=== PATIENT | female | born 1995 | race Caucasian/White ===

== ENCOUNTER 2016-06-27 07:10 | Inpatient (IN) ==
[2016-06-27] MEDS ORDERED: SODIUM CHLORIDE 0.9% 1,000 ML IV STA ×2 (07:47→09:42)
[2016-06-27] MEDS ORDERED: ONDANSETRON 4 MG/2 ML VIAL IV STA ×2 (07:47→08:31)
[2016-06-27] MEDS ORDERED: INSULIN REGULAR 100 UNIT/ML SUBCUT STA (07:47)
[2016-06-27] MEDS ORDERED: ONDANSETRON 4 MG/2 ML VIAL ONE ×2 (07:54→08:32)
[2016-06-27] MEDS ORDERED: INSULIN REGULAR 100 UNIT/ML ONE (07:56)
[2016-06-27 08:28] LABS: Basophils # 0.1 10*3/uL (0.0-0.2); Basophils % 0.2 % (0.0-0.8); Hematocrit 36.9 VOL% (35.7-47.0); Hemoglobin 12.5 GM/DL (12.0-16.0); Immature Granulocytes % 0.6 %; Immature Granulocytes Absolute 0.12 #; Lymphocytes # 0.7 10*3/uL (1.4-4.0); Lymphocytes % 3.2 % (21.3-54.2); Mean Corpuscular HGB Conc 33.9 GM/DL (32-36); Mean Corpuscular Hemoglobin 29 PG (27-34); Mean Corpuscular Volume 86.8 FL (87-102); Mean Platelet Volume 11.9 FL (9.6-12.0); Monocytes # 0.9 10*3/uL (0.11-0.8); Monocytes % 4.5 % (1.7-12.7); Neutrophils # 18.5 10*3/uL (1.4-7.4); Neutrophils % 91.5 % (38.7-73.9); Platelet Count 351 T/CUMM (130-400); Red Blood Count 4.25 MC/CUMM (3.8-5.5); Red Cell Distribution Width 11.9 % (9.3-17.3); White Blood Count 20.3 T/CUMM (4-12)
[2016-06-27 08:55] LABS: Hypochromasia Slight
[2016-06-27 09:02] LABS: Albumin 4.3 G/DL (3.4-5.0); Bilirubin,Total 1.1 MG/DL (0.2-1.0); Calcium 9.7 MG/DL (8.5-10.1); Osmolality,Calculated 292.8 MOS/KG (273-304); Potassium 5.2 MMOL/L (3.5-5.1); Total Protein 7.5 G/DL (6.4-8.3)
--- NOTE | 2016-06-27 11:49 | Emergency Department Note ---
Patience Davila Brittany, am scribing for, and in the presence of, Vincent Cotton Jr., MD 07:51. Yury Davila Marvin Jr., MD, personally performed the services described in this documentation, ascribed by Roro Morin in my presence, and it is both accurate and complete 913 . Arrival - Arrival Chief Complaint: Nausea/Vomiting/Diarrhea Stated Complaint: vomiting had tooth pulled on sob ED Nursing Triage Note: c/o nausea/ vomiting since , states had her wisdom tooth removed on thr by ., states has not called at this time, states she is unable to keep any of her medications down., Mode of Arrival: Ambulatory Source: Patient - History of Present Illness HPI Narrative: This is a 20 y/o white female, who presents to the ED with c/o nausea and vomiting which started yesterday evening. Her mom reports she had her wisdom tooth removed on 2 days ago. She states since haing the wisdom tooth removed she has been nauseated and vomiting. Her mom states pt was given Percocet but has been unable to keep them down. She states the last Perocet was given at 2300 last night. Pt reports at 0530 this morning she started to get SOB and experience chest pains. She also reports her arms and legs "feeling funny." Pt has no other complaints/pain in the ED at this time. Pt has a PMHx of IDDM. Pt has had wisdom teeth removed. Pt denies a family medical Hx. Pt denies a social Hx. Onset (ago): day(s) (Started yesterday evening) Consistency: constant Severity: moderate Date of Last Menstrual Period: may 27 Allergies/Adverse Reactions: Allergies Allergy/AdvReac Type Severity Reaction Status Date / Time No Known Allergies Allergy Verified 06/27/16 07:17 Home Medications: Home Medications Medication Instructions Recorded Confirmed Type Insulin Aspart [NovoLOG Flexpen] See Protocol SUBCUT DAILY 10/16/14 06/27/16 History Insulin Glargine [Lantus] 27 unit SUBCUT BEDTIME 10/16/14 06/27/16 History Review of System - Review of System 12 point system: reviewed and no additional remarkable complaints except as stated - Review of System Head/Ears/Nose/Throat: Present: other (Mouth pain secondary to wisdom tooth removed) Cardiovascular: Present: chest pain, other (Dyspnea). Absent: dyspnea on exertion Gastrointestinal: Present: nausea, vomiting Medical,Surgical,& Family Hx - Medical History Endocrine: History of: Diabetes Mellitus (IDDM) - Social History Smoking Status: Never smoker Frequency of Alcohol Use: None Type of Drug Use: None Exam Physical Examination: General: Well-developed well-nourished, no apparent distress. Head: Normocephalic, atraumatic. Eyes: PERRLA, EOMI. Nose: No obvious acute deformities or discharge. Mouth: No obvious acute injury. Mucous membranes appear dry Neck: Full range of motion without obvious pain. No midline tender to palpation. Lymphatic: no significant lymphadenopathy noted. Lungs: Clear to auscultation bilaterally, normal and equal air movement bilaterally, no obvious rales or wheezing. Heart: tachycardic Abdomen: Soft nontender, nondistended, normal active bowel sounds. Skin: No obivous acute lesions noted Musculoskeletal: No gross deformities. Neurological: No focal findings, cranial nerves II through XII grossly normal. Psychiatric: Appropriate mood.. : Deferred Vital Signs: Vital Signs Temperature 98.9 F 06/27/16 07:30 Pulse Rate 130 H 06/27/16 07:30 Respiratory Rate 20 06/27/16 07:30 Blood Pressure 120/70 06/27/16 07:30 O2 Sat by Pulse Oximetry 99 06/27/16 07:13 Course Course Narrative: Differential diagnosis, dehydration, adverse drug reaction to Percocet, poorly controlled diabetes - Reevaluation(s) Reevaluation #1: Patient still nauseated Time: 08:31 Reevaluation #2: Patient still little nauseated, lab work indicates this patient is in DKA. Will continue fluids and admit her to the hospital. She still tachycardic Time: 09:42 Reevaluation #3: Patient is improving, heart rate now 103. She has been able to tolerate a little bit of water. Obviously this is a DKA patient will be admitted to the hospital. I contacted the hospitalist and they will come down to decide if she needs to go to the ICU versus regular floor bed. She is much better than when she first got here. Time: 11:46 Results - Labs CBC & BMP: 06/27/16 07:38 06/27/16 07:38 Lab Results: I have reviewed the patients labs Labs: Laboratory Tests 06/27/16 06/27/16 06/27/16 07:38 07:38 07:43 WBC 20.3 H RBC 4.25 Hgb 12.5 Hct 36.9 MCV 86.8 L MCH 29 MCHC 33.9 RDW 11.9 Plt Count 351 MPV 11.9 Neut % (Auto) 91.5 H Lymph % (Auto) 3.2 L [place] % (Auto) 4.5 Eos % (Auto) 0.0 Baso % (Auto) 0.2 Neut # (Auto) 18.5 H Lymph # (Auto) 0.7 L [place] # (Auto) 0.9 H Eos # (Auto) 0.0 Baso # (Auto) 0.1 Immature Gran % 0.6 Nucleated RBC % 0.0 Immature Gran # 0.12 Nucleated RBCs # 0.00 Hypochromasia Slight Sodium 137 Potassium 5.2 H Chloride 98 Carbon Dioxide 14 L Anion Gap 30.2 H BUN 16 Creatinine 1.30 H GFR Calculation 58 BUN/Creatinine Ratio 12.00 Glucose 446 H POC Glucose 434 H Calculated Osmolality 292.8 Calcium 9.7 Total Bilirubin 1.10 H AST 15 ALT 13 Alkaline Phosphatase 101 Total Protein 7.5 Albumin 4.3 Globulin 3.2 Albumin/Globulin Ratio 1.3 06/27/16 09:01 WBC RBC Hgb Hct MCV MCH MCHC RDW Plt Count MPV Neut % (Auto) Lymph % (Auto) [place] % (Auto) Eos % (Auto) Baso % (Auto) Neut # (Auto) Lymph # (Auto) [place] # (Auto) Eos # (Auto) Baso # (Auto) Immature Gran % Nucleated RBC % Immature Gran # Nucleated RBCs # Hypochromasia Sodium Potassium Chloride Carbon Dioxide Anion Gap BUN Creatinine GFR Calculation BUN/Creatinine Ratio Glucose POC Glucose 404 H Calculated Osmolality Calcium Total Bilirubin AST ALT Alkaline Phosphatase Total Protein Albumin Globulin Albumin/Globulin Ratio Critical Care Time Critical Care Time: Yes Total Critical Care Time: 32 (DKA, acidosis, vomiting, dehydration) Disposition Clinical Impression: Diabetic ketoacidosis, Moderate dehydration, Metabolic acidosis, Renal insufficiency, Poorly controlled diabetes mellitus, History of recent dental procedure Case discussed with: patient, patient's family Disposition: Still a Patient Condition: Stable Time of Disposition: 11:48
[2016-06-27 12:29] LABS: Apearance,Urine CLEAR (Clear); Bilirubin,Urine Negative (Negative); Blood, Urine Negative (Negative); Glucose,Urine (UA) >=500 mg/dL (Negative); Ketones,Urine 80 mg/dL (Negative); Nitrite,Urine Negative (Negative); Protein,Urine Negative; RBC,Urine <1 /HPF (0-4); Squamous Epithelial Cell,Urine Occasional /HPF (0-10); Urine Color Straw (Yellow); Urine Specific Gravity 1.017 (1.001-1.035); Urine Urobilinogen < 2.0 EU/DL (0.2-1.0); WBC,Urine 2 /HPF (0-6)
[2016-06-27 12:37] LABS: ABG Base Excess -10.1 MMOL/L (-2.5-2.5); ABG HCO3 16.5 MMOL/L (20-26); ABG Oxygen Saturation 98.8 % (95-100); ABG PCO2 27.9 MM HG (35-48); ABG PH 7.329 (7.35-7.45); ABG TCO2 13.3 MMOL/L (23-27); Allen Test Positive; Pt O2 Delivery Device Room Air
[2016-06-27] MEDS ORDERED: SODIUM CHLORIDE 0.9% 100 ML IV ONE (12:46)
[2016-06-27] MEDS ORDERED: PIPERACILLIN/TAZOBACTAM 3,375 MG VIAL IV ONE (12:46)
[2016-06-27] MEDS ORDERED: SODIUM CHLORIDE 0.9% 1,000 ML IV ONE (12:48)
[2016-06-27] MEDS ORDERED: SODIUM BICARB INJ 100 MEQ in STERILE WATER INJ 400 ML IV PRN (12:48)
[2016-06-27] MEDS ORDERED: POTASSIUM CHLORIDE RIDER 10 MEQ in PREMIX 1 EACH IV PRN (12:48)
[2016-06-27] MEDS ORDERED: INSULIN REGULAR DRIP 100 ML IV SCH (12:48)
[2016-06-27] MEDS ORDERED: SODIUM CHLORIDE 0.9% IV PRN (12:48)
[2016-06-27] MEDS ORDERED: MAGNESIUM SULF RIDER 2 GM in PREMIX 1 EACH IV PRN (12:48)
[2016-06-27] MEDS ORDERED: SODIUM PHOSPHATE IV PRN (12:48)
[2016-06-27] MEDS ORDERED: DEXTROSE 50% 25 GM/50 ML VIAL IV PRN ×2 (12:48)
[2016-06-27] MEDS ORDERED: MAGNESIUM SULF RIDER 4 GM in PREMIX 1 EACH IV PRN (12:48)
--- NOTE | 2016-06-27 12:51 | Hospitalist History & Physical ---
<Darwin Rosales - Last Filed: 06/27/16 12:41> Assessment and Plan - Time spent with patient Time spent with patient: Greater than 30 minutes (1) Insulin dependent diabetes mellitus Status: Acute Assessment and plan: Diagnosed at age 4. Well controlled on NovoLog and Lantus. Recent dental procedure. Has been holding her insulin doses because of "reduced appetite". Will monitor glucose and treat accordingly. Current Visit: Yes (2) History of recent dental procedure Status: Acute Assessment and plan: [place] teeth extraction on 06/25/2016. Amoxicillin and Percocet given. Current Visit: Yes (3) Metabolic acidosis Status: Acute Assessment and plan: PH 7.3 bicarb 16.5 PCO2 27.9. Current Visit: Yes (4) Hyperosmolar syndrome Status: Acute Assessment and plan: Blood glucose 446 on arrival. POC glucose 270 at time of the exam. Patient given 12 units of insulin. Patient already has received 2 L of normal saline. Will give 4 more liters in the unit. Current Visit: Yes History of Present Illness Chief complaint: Nausea/vomiting History of present illness: Ms. Rueda is a 20 year old female with a history significant for insulin- dependent diabetes mellitus for 16 years who presents to the emergency room with complaints of nausea vomiting since yesterday evening. Patient's mother and father are at bedside, and mother reports that the patient had her wisdom teeth pulled on . The patient has been on amoxicillin and Percocet. The patient has been vomiting intermittently since around 8 PM last night and unable to eat. She describes this emesis as yellow/brown in color. On exam, patient appears mildly distressed but denies abdominal pain, diarrhea. White count is 20.3 ABGs: PH 7.3, PCO2 27.9, PO2 117.0, HCO3 16.5. Serum glucose 446 on admission. Patient has been given 12 units of insulin and 2 L of normal saline. POC glucose at the time of exam is 270. Patient will be admitted to the hospital medicine team for further management. It appears the patient may be in a hyperosmolar state rather than acute DKA. We will admit her to the ICU and give 4 more liters of IV fluids and treat the glucose accordingly. Home Medications Medication Instructions Recorded Confirmed Type Insulin Aspart [NovoLOG Flexpen] See Protocol SUBCUT DAILY 10/16/14 06/27/16 History Insulin Glargine [Lantus] 27 unit SUBCUT BEDTIME 10/16/14 06/27/16 History Allergies Allergy/AdvReac Type Severity Reaction Status Date / Time No Known Allergies Allergy Verified 06/27/16 07:17 Medical,Surgical,& Family Hx - Medical History Endocrine: History of: Diabetes Mellitus (IDDM) - Surgical History Additional Surgical History: [place] teeth extraction on 06/25/2016 - Family History Family History: Reports;: Family Diabetes, Family Hypertension - Social History Smoking Status: Never smoker Frequency of Alcohol Use: None Type of Drug Use: None Marital Status: Single Lives With:: College roommate Functional capacity: independent ambulation - Constitutional Constitutional: Present: fatigue, weakness. Absent: chills, fever(s) - EENT Eyes: Absent: blurry vision, loss of vision Ears: Absent: decreased hearing, ear pain Nose, mouth and throat: Absent: headache(s), neck mass, neck pain - Cardiovascular Cardiovascular: Absent: chest pain with activity, diaphoresis, dyspnea, edema - Respiratory Respiratory: Absent: cough, dyspnea - Gastrointestinal Gastrointestinal: Present: nausea, vomiting. Absent: constipation, cramping, diarrhea - Genitourinary Genitourinary: Absent: difficulty urinating, dysuria, flank pain - Musculoskeletal Musculoskeletal: Absent: arthralgias, back pain - Neurological Neurological: Absent: abnormal gait, abnormal speech - Psychiatric Psychiatric: Absent: anxiety, auditory hallucinations - Endocrine Endocrine: Absent: cold intolerance, heat intolerance - Hematologic/Lymphatic Hematologic/Lymphatic: Absent: easy bleeding, easy bruising, lymphadenopathy Exam - Constitutional Vitals: Period Temp Pulse Resp BP Sys/Chapman Pulse Ox Last 24 Hr 98.9 F-98.9 F 130-130 20-20 120-120/70-70 99 Exam: General appearance: normal weight, mild distress - Head Head exam: Present: normocephalic, atraumatic - Eye Eye exam: Present: EOMI. Absent: conjunctival injection, nystagmus Pupils: Present: SRAVAN, normal accommodation - ENT ENT exam: Present: normal exam, normal external ear exam - Neck Neck exam: Present: normal inspection. Absent: lymphadenopathy, tenderness, thyromegaly - Respiratory Respiratory exam: Present: clear to auscultation bilaterally. Absent: rales, rhonchi, wheezes - Cardiovascular Cardiovascular exam: Present: tachycardia. Absent: carotid bruit, gallop, rubs - GI/Abdominal GI/Abdominal exam: Present: normal bowel sounds. Absent: ascites, distended, mass - Extremities Exam Extremities exam: Present: normal inspection, normal capillary refill. Absent: edema - Back Exam Back exam: Absent: CVA tenderness (L), CVA tenderness (R) - Neurological Exam Neurological exam: Present: alert, oriented X3 - Psychiatric Psychiatric exam: Present: normal affect, normal mood - Skin Skin exam: Present: normal color, warm, dry Results - Labs CBC & BMP: 06/27/16 07:38 06/27/16 07:38 Lab Results: I have reviewed the past 24 hour labs - Diagnostic Findings Procedure: Chest x-ray: image reviewed by me, report reviewed by me <Laureen Mancera - Last Filed: 06/27/16 14:24> Assessment and Plan (1) Diabetic ketoacidosis Status: Acute Assessment and plan: anion gap of 25, 2 liters of IVF in ER, 4 more liters of fluid and insulin drip , check abg, mg and phos, look for infectious source Current Visit: Yes (2) Leukocytosis Status: Acute Assessment and plan: may be stress response, recent wisdom teeth pulled, cont zosyn IV, ua negative , cxr negative, blood cx pending Current Visit: Yes (3) Moderate dehydration Status: Acute Assessment and plan: due to DKA Current Visit: Yes (4) Nausea and vomiting Status: Acute Assessment and plan: due to percocet or dka Current Visit: Yes History of Present Illness History of present illness: Ms. Rueda is a 20 year old female seen and examined. Hyperosmolar due to hold some of her insulin for surgery and post surgery, needs infectious workup. Dont smell ketones. Results - Labs CBC & BMP: 06/27/16 07:38 06/27/16 07:38 - Diagnostic Findings Procedure: Chest x-ray: report reviewed by me (nothing acute )
--- NOTE | 2016-06-27 12:53 | XRay Report ---
History: Nausea and vomiting. Shortness of breath. Infection Date: 06/27/2016 Study: Chest x-ray AP portable Comparison exam: No previous chest x-ray available The cardiomediastinal silhouette and pulmonary vasculature are unremarkable. The lungs and pleural spaces are clear. The osseous structures are unremarkable. Impression: No acute cardiopulmonary process PROCEDURE INTERPRETED AT [facility] DEPARTMENT OF RADIOLOGY Final Report Signed by: Dr. Nandini Shah
[2016-06-27] MEDS: PIPERACILLIN/TAZOBACTAM 3,375 MG in SODIUM CHLORIDE 0.9% 100 ML IV SCH ×2 (13:00→20:04)
[2016-06-27 14:32] LABS: Basophils % 0.1 % (0.0-0.8); Hematocrit 31.8 VOL% (35.7-47.0); Hemoglobin 10.6 GM/DL (12.0-16.0); Immature Granulocytes % 0.5 %; Immature Granulocytes Absolute 0.09 #; Lymphocytes # 1.2 10*3/uL (1.4-4.0); Lymphocytes % 6.5 % (21.3-54.2); Mean Corpuscular HGB Conc 33.3 GM/DL (32-36); Mean Corpuscular Hemoglobin 30 PG (27-34); Mean Corpuscular Volume 89.6 FL (87-102); Mean Platelet Volume 10.8 FL (9.6-12.0); Monocytes # 1.3 10*3/uL (0.11-0.8); Neutrophils % 85.9 % (38.7-73.9); Platelet Count 239 T/CUMM (130-400); Red Blood Count 3.55 MC/CUMM (3.8-5.5); Red Cell Distribution Width 11.9 % (9.3-17.3); White Blood Count 18.6 T/CUMM (4-12)
[2016-06-27 15:00] LABS: Calcium 8.1 MG/DL (8.5-10.1); Magnesium 1.8 MG/DL (1.8-2.4); Phosphorous 3.6 MG/DL (2.5-4.9); Potassium 4.5 MMOL/L (3.5-5.1)
[2016-06-27] MEDS: SODIUM CHLORIDE 0.9% 1,000 ML IV SCH ×2 (15:26→17:51)
[2016-06-27 16:58] LABS: Apearance,Urine CLEAR (Clear); Bilirubin,Urine Negative (Negative); Blood, Urine Small mg/dL (Negative); Glucose,Urine (UA) >=500 mg/dL (Negative); Ketones,Urine 80 mg/dL (Negative); Mucus,Urine Occasional /LPF (Occasional); Nitrite,Urine Negative (Negative); Protein,Urine Negative; RBC,Urine 1 /HPF (0-4); Squamous Epithelial Cell,Urine Occasional /HPF (0-10); Urine Color Yellow (Yellow); Urine Specific Gravity 1.018 (1.001-1.035); Urine Urobilinogen < 2.0 EU/DL (0.2-1.0); WBC,Urine 3 /HPF (0-6)
[2016-06-27 17:03] LABS: Calcium 7.8 MG/DL (8.5-10.1); Osmolality,Calculated 288.8 MOS/KG (273-304)
[2016-06-27] MEDS ORDERED: SODIUM CHLORIDE 0.9% 1,000 ML IV SCH (17:19)
[2016-06-27] MEDS: DEXTROSE 5% NACL 0.9% 1,000 ML IV SCH (19:16)
[2016-06-27 21:52] LABS: Calcium 7.9 MG/DL (8.5-10.1); Osmolality,Calculated 287.7 MOS/KG (273-304); Potassium 3.3 MMOL/L (3.5-5.1)
[2016-06-27] MEDS: DEXT 5% NACL 0.45% KCL 20 MEQ 20 MEQ/1,000 ML BAG IV SCH (22:46)
[2016-06-28 02:36] LABS: Calcium 7.6 MG/DL (8.5-10.1); Osmolality,Calculated 286.6 MOS/KG (273-304); Potassium 3.6 MMOL/L (3.5-5.1)
[2016-06-28] MEDS: DEXT 5% NACL 0.45% KCL 20 MEQ 20 MEQ/1,000 ML BAG IV SCH (03:02)
[2016-06-28] MEDS: PIPERACILLIN/TAZOBACTAM 3,375 MG in SODIUM CHLORIDE 0.9% 100 ML IV SCH ×2 (04:29→11:52)
[2016-06-28] MEDS: ACETAMINOPHEN 325 MG TABLET PO PRN ×2 (04:29→09:15)
[2016-06-28 04:42] LABS: Basophils % 0.2 % (0.0-0.8); Eosinophils # 0.1 10*3/uL (0.0-0.87); Eosinophils % 0.5 % (0.00-10.9); Hematocrit 27.2 VOL% (35.7-47.0); Immature Granulocytes % 0.2 %; Immature Granulocytes Absolute 0.02 #; Lymphocytes # 1.8 10*3/uL (1.4-4.0); Lymphocytes % 18.4 % (21.3-54.2); Mean Corpuscular HGB Conc 33.1 GM/DL (32-36); Mean Corpuscular Hemoglobin 29 PG (27-34); Mean Corpuscular Volume 88.3 FL (87-102); Monocytes % 10.5 % (1.7-12.7); Neutrophils % 70.2 % (38.7-73.9); Platelet Count 184 T/CUMM (130-400); Red Blood Count 3.08 MC/CUMM (3.8-5.5); Red Cell Distribution Width 12.3 % (9.3-17.3); White Blood Count 9.9 T/CUMM (4-12)
[2016-06-28 05:10] LABS: Calcium 7.4 MG/DL (8.5-10.1); Osmolality,Calculated 285.7 MOS/KG (273-304); Potassium 3.8 MMOL/L (3.5-5.1)
[2016-06-28 05:11] LABS: Magnesium 1.9 MG/DL (1.8-2.4); Phosphorous 2.1 MG/DL (2.5-4.9)
[2016-06-28] MEDS ORDERED: SODIUM CHLORIDE 0.45% 1,000 ML IV SCH (05:19)
[2016-06-28] MEDS: DEXTROSE 5% NACL 0.9% 1,000 ML IV SCH (06:38)
[2016-06-28] MEDS ORDERED: DEXTROSE 5% NACL 0.45% 1,000 ML IV SCH (07:00)
[2016-06-28 08:33] LABS: Calcium 7.5 MG/DL (8.5-10.1); Osmolality,Calculated 287.6 MOS/KG (273-304); Potassium 3.7 MMOL/L (3.5-5.1)
[2016-06-28] MEDS ORDERED: INSULIN GLARGINE 100 UNIT/ML SUBCUT SCH (09:00)
[2016-06-28] MEDS: INSULIN GLARGINE 100 UNIT/ML SUBCUT SCH (09:11)
[2016-06-28] MEDS: SODIUM CHLORIDE 0.45% 1,000 ML IV SCH ×2 (09:11→16:57)
[2016-06-28] MEDS: ONDANSETRON 4 MG/2 ML VIAL IV PRN ×2 (09:30→16:58)
[2016-06-28] MEDS ORDERED: POTASSIUM PHOSPHATE 30 MMOL in SODIUM CHLORIDE 0.9% 250 ML IV ONE (09:30)
[2016-06-28] MEDS: INSULIN LISPRO 100 UNIT/ML SUBCUT SCH ×6 (11:52→20:41)
--- NOTE | 2016-06-28 13:32 | Hospitalist Progress Note ---
Assessment and Plan (1) Diabetic ketoacidosis Status: Acute Assessment and plan: inrease Lantus to 50 units subcu daily, high dose insulin sliding scale Current Visit: Yes (2) Leukocytosis Status: Acute Assessment and plan: Most likely due to stress response. Chest x-ray and UA are negative. Blood cultures 2 are negative no growth, will stop Zosyn today and restart her amoxicillin given to her by Dentist Current Visit: Yes (3) Moderate dehydration Status: Acute Assessment and plan: resolved Current Visit: Yes (4) Nausea and vomiting Status: Acute Assessment and plan: resolved, restarted diabetic diet Current Visit: Yes (5) Hypophosphatemia Status: Acute Assessment and plan: Kphos replace Current Visit: Yes Hospitalist: Subjective Interval history: She is still a little swollen. The pain is better today and she really wants to eat. Her gap is closed and we are converting her over to Lantus. She was taking 27 daily at home but her blood sugars are not well controlled. We will increase that to 50 units subcu daily. We will start a high-dose sliding scale and move her out of the ICU. Her dehydration has resolved. Exam - Constitutional Vitals: Period Temp Pulse Resp BP Sys/Chapman Pulse Ox Last 24 Hr 97.8 F-99.3 F 70-117 14-25 89-119/44-68 96-100 Exam: Heart Rate-[RRR] Lungs-[CTAB] GI-[+bs soft, NT] Ext-[trace edema] Neuro [Motor 5/5], [alert and oriented times 3] psych [normal mood and affect] General [no acute distress] Face cheeks are a little swollen due to recent surgical extraction Results - Labs CBC & BMP: 06/28/16 03:47 06/28/16 07:59 Lab Results: I have reviewed the past 24 hour labs
[2016-06-28] MEDS ORDERED: PROMETHAZINE 25 MG/1 ML VIAL ONE (15:07)
[2016-06-28] MEDS ORDERED: PROMETHAZINE 25 MG/1 ML VIAL IM PRN (15:13)
[2016-06-28] MEDS ORDERED: ONDANSETRON 4 MG/2 ML VIAL IV PRN (18:31)
[2016-06-28] MEDS: AMOXICILLIN 500 MG CAPSULE PO SCH (20:22)
[2016-06-29] MEDS: SODIUM CHLORIDE 0.45% 1,000 ML IV SCH (03:47)
[2016-06-29] MEDS: ACETAMINOPHEN 325 MG TABLET PO PRN (08:31)
[2016-06-29] MEDS: AMOXICILLIN 500 MG CAPSULE PO SCH (08:33)
[2016-06-29] MEDS: INSULIN GLARGINE 100 UNIT/ML SUBCUT SCH (10:41)
[2016-06-29] MEDS: INSULIN LISPRO 100 UNIT/ML SUBCUT SCH ×3 (10:41→12:28)
[2016-06-29] MEDS ORDERED: INSULIN GLARGINE 100 UNIT/ML SUBCUT SCH (11:42)
[2016-06-29] MEDS ORDERED: GLUCAGON 1 MG VIAL IM PRN (11:43)
[2016-06-29] MEDS ORDERED: DEXTROSE 50% 25 GM/50 ML VIAL IV PRN (11:43)
[2016-06-29 11:48] VITALS: BP 127/84
--- NOTE | 2016-06-29 14:26 | Discharge Summary ---
Hospital Course - Hospital Course Hospital Course: Ms Rueda is a college student who had her lower wisdom teeth extracted and then developed nausea and vomiting and elevated glucose. She had DKA. She was admitted and treated with IV insulin and IVF, and is now doing much better. It is difficult for her to eat due to her sore mouth, but her BG has been well controlled off the insulin infusion and her nausea has resolved. She will be discharged and stay locally for a while longer before returning to [facility]. She will continue amoxicilin po, and resume her usual home diabetes regimen which works well for her. She will call her PCP and make a follow up appointment with her (Kristine Flor NP in [place]) to review her diabetes care. It has been a while since she was seen. - Time spent with patient Time with patient DS: Greater than 30 minutes (documentation, medicine reconciliation, discharge planning with the patient and family.) Diagnosis - Discharge Diagnosis (1) Moderate dehydration Status: Resolved (2) History of recent dental procedure Status: Acute (3) Insulin dependent diabetes mellitus Status: Chronic (4) Nausea and vomiting Status: Resolved (5) JAIMIE (acute kidney injury) Status: Resolved (6) Diabetic ketoacidosis Status: Resolved Specialty Discharge - Follow Up or Referrals Follow up with: Kristine Flor [employer] [Other] (with Dr Jackson admitted with DKA after tooth extraction) Discharge Plan - Discharge Data Disposition: Disch To Home/Self Care Condition at Discharge: Stable Discharge Diet: diabetic diet Activity: resume usual activities as tolerated - Discharge Medications New Amoxicillin Cap/Tab 500 mg PO Q12HR #14 capsule Continue Insulin Aspart [NovoLOG FlexPen] See Protocol SUBCUT DAILY Insulin Glargine [Lantus] 27 unit SUBCUT BEDTIME - Follow Up or Referral Follow Up: Kristine Flor NP [Other] (with Dr Jackson admitted with DKA after tooth extraction) - Forms/Instructions Forms: Acute Care Work/School Release Instructions: Managing Diabetes During Sick Days (DC) Additional Discharge Instructions: Keep a careful eye on your glucose as you recover. Drink plenty of water to stay hydrated. Return to school in one week. Exam - Constitutional Vitals: Period Temp Pulse Resp BP Sys/Chapman Pulse Ox Last 24 Hr 97 F-99.5 F 69-87 18-20 102-128/66-84 94-99 General appearance: normal weight, no acute distress - Head Head exam: Present: normocephalic, atraumatic - Eye Eye exam: Present: EOMI. Absent: scleral icterus - Respiratory Respiratory exam: Present: clear to auscultation bilaterally - Cardiovascular Cardiovascular exam: Present: regular rate and rhythm - GI/Abdominal GI/Abdominal exam: Present: normal bowel sounds, soft. Absent: tenderness - Extremities Exam Extremities exam: Absent: edema - Neurological Exam Neurological exam: Present: alert, oriented X3 - Skin Skin exam: Present: warm, dry Discharge Results Labs on day of discharge: Labs from last 24 hours 06/29/16 06/29/16 06/28/16 11:37 07:22 20:21 POC Glucose 229 H 60 L 94 06/28/16 15:50 POC Glucose 107 H Preliminary micro results at discharge 06/27/16 12:58 Blood Culture - Preliminary Blood No growth at 1 day 06/27/16 12:55 Blood Culture - Preliminary Blood No growth at 1 day DS: Provider Date of admission: 06/27/16 12:16 Primary care physician: . No PCP Attending physician on admission: Laureen Mancera MD Consults: 06/27/16 12:48 Consult to [facility], Educator [CONS] Routine Reason for Printing And Stamping Supervisor: Diabetes Education Initial Insulin Education Consult Comment: INSULIN EDUCATION 06/27/16 15:52 Consult to [facility] Center, Educator [CONS] Routine Reason for Printing And Stamping Supervisor: Diabetes Education Discharging clinician: Rola Foote MD
== END 2016-06-29 15:50 | disposition home or self-care (01) | DRG 639 ==
LOC: N.ED 07:10 → SUATTDRO 12:16 → N.EDINP 12:16 → N.CC 13:45 → N.TELEN 06-28 21:33
PROVIDERS: ADMIT Internal Medicine; ATTEND Internal Medicine